=== PATIENT | male | born 1990 | race Caucasian/White ===

== ENCOUNTER 2019-07-16 13:15 | Emergency (ER) | payer SELFPAY ==
[2019-07-16] MEDS: SOD CHLORIDE 0.9% 1,000 ML IV (16:38)
[2019-07-16] MEDS: ONDANSETRON 4 MG INJ IV (16:38)
[2019-07-16] MEDS: LIDOCAINE/MYLANTA 40 ML BTL PO (16:38)
[2019-07-16] MEDS: BELLADONNA/PHENOBARBITAL TAB PO (16:39)
[2019-07-16] MEDS: HYDROmorphONE 1 MG/ML SYG IV (16:39)
[2019-07-16] MEDS: SOD CHLORIDE 0.9% 100 ML (17:41)
[2019-07-16] MEDS: IOHEXOL 300MG/ML 150 ML BTL (17:41)
[2019-07-16] MEDS: CIPROFLOXACIN 500 MG TAB PO (19:06)
[2019-07-16] MEDS: metroNIDAZOLE 500 MG TAB PO (19:16)
== END 2019-07-16 19:38 | disposition home or self-care (01) ==
LOC: FTE 13:15
DX: K52.9 Noninfective gastroenteritis and colitis, unspecified (principal)
CPT/HCPCS: 36415; 74177; 76705; 80053; 81001; 83690; 85025; 96374; 96375; 99285-25